=== PATIENT | female | born 1965 | race Caucasian/White ===

== ENCOUNTER 2016-10-25 12:26 | Day surgery (SDC) | payer BC ==
[~2016-10-25] VITALS: Ht 160 cm; Wt 67.2 kg
[2016-10-25 13:19] VITALS: Ht 160 cm; Wt 67.2 kg
[2016-10-25] MEDS ORDERED: MULT-761 PO (13:24)
[2016-10-25 13:38] VITALS: BP 107/51; PULSE 57; RESP 16
[2016-10-25] MEDS ORDERED: FENTAnyl 50 MCG/ML VIAL ONE (14:13)
[2016-10-25] MEDS ORDERED: PROPOFOL 20 ML ONE (14:13)
[2016-10-25] MEDS ORDERED: MIDAZOLAM 1 MG/ML 2 ML INJ ONE (14:13)
[2016-10-25 15:13] VITALS: BP 102/47; PULSE 53; RESP 18
--- NOTE | 2016-10-25 17:03 | GILP ---
DATE OF PROCEDURE: 10/25/2016 DATE: 10/25/2016. PROCEDURE PERFORMED: Colonoscopy with followup ablation. HISTORY AND INDICATIONS: The patient is being evaluated for colorectal cancer screening. PREMEDICATION: Monitored anesthesia care by anesthesiologist. SURGEON: Shiva Mckeon MD. INSTRUMENT USED: Olympus colonoscope. PREPARATION: Adequate. TECHNIQUE: After informed consent, with the patient/relatives understanding the procedure, its indic ations potential risks and complications, including but not limited to: allergic reaction, bleeding, perforation, infection, missed lesions and after all pertinent questions were answered to the patie nt's satisfaction, the patient/relatives signed the witnessed informed consent. Following this, premedication was administered slowly IV push by under careful cardiovascular and re spiratory monitoring with pulse oximetry, automatic blood pressure and court recording monitor. Once the sedativ e effect was achieved, the patient was placed in the left lateral decubitus position, digital rectal examination was performed. The colonoscope was then introduced and advanced under visual control th roughout all segments of the colon including: the rectum, sigmoid, descending colon, splenic flexure , transverse colon, hepatic flexure, ascending colon and finally reaching the cecum which was clearl y identified by transillumination, finger indentation and the ileocecal valve. Careful examination o f the mucosa of the lower gastrointestinal tract both on insertion as well as withdrawal of the inst rument disclosed the following findings: Rectal Examination: No evidence of perirectal disease, no masses. Colonic Mucosa: The colonic mucosa unremarkable with exception of a 4 mm sessile polyp in the ascend ing colon which was completely ablated with biopsy forceps. The remainder of colonic mucosa unremar kable. The ileocecal valve and appendiceal orifice were identified and appeared unremarkable. The instrument was withdrawn reexamining the mucosa in detail. No additional abnormalities are noted wi th exception of moderate-sized internal hemorrhoids. IMPRESSION: A 4 mm sessile polyp in the ascending colon ablated. Moderate size internal hemorrhoid s. PLAN: The patient will be followed up as an outpatient. Pathology will be reviewed as soon as anton brown and further recommendation will depend on patient's clinical course as well as review of biops ies. Dictated By: SHIVA MCKEON MS/ROSI Conf#: [id number] DID#: [id number]
== END 2016-10-25 15:54 | disposition home or self-care (01) ==
LOC: GIL 12:26
PROVIDERS: ATTEND Internal Medicine Gastroenterology
DX: Z12.11 Encounter for screening for malignant neoplasm of colon (principal); D12.2 Benign neoplasm of ascending colon; K64.8 Other hemorrhoids
CPT/HCPCS: 45380; 88305; J2250; J3010; Z7610